=== PATIENT | male | born 2000 | race Caucasian/White ===

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

== ENCOUNTER 2021-03-25 18:15 | Outpatient (CLI) | payer MEDICAID, SELFPAY | END 2021-03-25 23:59 | disposition home or self-care (01) | PROVIDERS: PCP Family Medicine; Visit Provider Registered Nurse | DX: J98.8 Other specified respiratory disorders (principal); Z20.822 Contact with and (suspected) exposure to COVID-19 | CPT/HCPCS: 87635; U0003; U0005 ==

== ENCOUNTER 2023-10-16 13:44 | Emergency (ER) | payer MEDICAID, SELFPAY ==
[2023-10-16 13:45] VITALS: BP 134/74; PULSE 112; RESP 16; TEMP 36.6; O2SAT 98; BMI 20.9
--- NOTE | 2023-10-16 14:37 | ED.RN ---
Pt and parents tell this RN pt is feeling much better. Pt states his symptoms are subsiding and he feels safe to go home and be monitored by parents. Pt advised to stay with parents and seek immediate medical attentions for any further concerns. Pt and father voice understanding.
== END 2023-10-16 14:40 | disposition left against medical advice (07) ==
LOC: ED 14:47
PROVIDERS: PCP Family Medicine
DX: Z53.21 Procedure and treatment not carried out due to patient leaving prior to being seen by health care provider (principal)